=== PATIENT | male | born 1960 | race Caucasian/White ===

== ENCOUNTER → 2017-09-29 | Outpatient (CLI) | payer OTHER | END | disposition home or self-care (01) | LOC: LABPAT 08:49 | PROVIDERS: ATTEND Surgery | DX: Z01.812 Encounter for preprocedural laboratory examination (principal) | CPT/HCPCS: 36415; 84132; 86850; 86900; 86901 ==

== ENCOUNTER → 2017-09-30 | Day surgery (SDC) | payer OTHER ==
[2017-09-29 10:19] VITALS: BMI 34.7
[~2017-09-30] MED LIST: DEXTROSE 50%-WATER 50 ML SYRINGE IVP ONE; LACTATED RINGERS 1,000 ML IV SCH; LIDOCAINE 1% 20 ML VIAL (10MG/ML) FOR IV START INTRADERMA PRN; LIDOCAINE 1% INJ 10MG/ML (20 ML MDV) ONE; PROPOFOL 10 MG/ML 20 ML VIAL IV ONE
[2017-10-01 02:54] LABS: Glucose,Whole Blood 104 mg/dL (75-99)
[2017-10-01 02:55] LABS: Glucose,Whole Blood 101 mg/dL (75-99)
[2017-10-01 02:55] LABS: Glucose,Whole Blood 80 mg/dL (75-99)
--- NOTE | 2017-10-05 13:13 | P.OP ---
Date of Procedure: 09/30/17 Preoperative Diagnosis: Screening colonoscopy Postoperative Diagnosis: Same Procedure(s) Performed: Colonoscopy Anesthesia: MAC Surgeon: Milly Oneal Pathology: none sent Condition: stable Disposition: PACU Indications for Procedure: 57 years old male presents for screening colonoscopy. He underwent attempted colonoscopy at [facility] yesterday and could not be completed secondary to poor prep. He presents today for colonoscopy after taking his second colon prep. Risks, benefits and potential complications were discussed with the patient and he elected to undergo colonoscopy with possible biopsy Operative Findings: Sigmoid diverticulosis Description of Procedure: The patient was brought to the endoscopy suite and placed in lateral decubitus position. IV sedation was given as per anesthesia team. Patient was on continuous vitals and pulse oximetry monitoring throughout the procedure. A timeout was performed to verify correct patient and correct procedure. Perianal examination did not show any external hemorrhoids. Digital rectal examination was performed. No masses or gross blood. A well-lubricated Olympus colonoscope was passed per rectally and was gradually advanced beyond the sigmoid colon, splenic flexure, transverse colon, hepatic flexure and cecum. The ileocecal valve was visualized. No appendiceal orifice visualized consistent wit prior history of appendectomy. The colonoscope was gradually withdrawn inspecting all the mucosal surfaces. Bowel prep was good. No polyps, masses, AV malformations noted. Sigmoid diverticulosis noted without any evidence of acute diverticulitis. The scope was gradually withdrawn and retroflexed in the rectum . Grade 1 internal hemorrhoids seen. Total withdrawal time was greater than 6 minutes . Patient tolerated the procedure well and was taken to post anesthesia care unit in stable condition. Recommend repeat colonoscopy in 10 years .
[2017-10-12 10:36] LABS: Glucose,Whole Blood 61 mg/dL (75-99)
== END ==
LOC: ORWHC2ENDO 11:04
PROVIDERS: ATTEND Surgery
DX: Z12.11 Encounter for screening for malignant neoplasm of colon (principal); K57.30 Diverticulosis of large intestine without perforation or abscess without bleeding; K64.8 Other hemorrhoids; K43.2 Incisional hernia without obstruction or gangrene; E66.9 Obesity, unspecified; Z68.37 Body mass index [BMI] 37.0-37.9, adult; E11.9 Type 2 diabetes mellitus without complications; Z79.84 Long term (current) use of oral hypoglycemic drugs; Z79.4 Long term (current) use of insulin; Z79.899 Other long term (current) drug therapy; Z88.0 Allergy status to penicillin
CPT/HCPCS: J2001; J2704; G0121; 45378

== ENCOUNTER 2017-10-05 11:01 | Day surgery (SDC) | payer OTHER ==
[2017-09-28 12:47] VITALS: BMI 33.7
[~2017-10-05 11:01] MED LIST changes: -DEXTROSE 50%-WATER 50 ML SYRINGE IVP ONE; -LACTATED RINGERS 1,000 ML IV SCH; -LIDOCAINE 1% 20 ML VIAL (10MG/ML) FOR IV START INTRADERMA PRN; -LIDOCAINE 1% INJ 10MG/ML (20 ML MDV) ONE; -PROPOFOL 10 MG/ML 20 ML VIAL IV ONE; +Pre Op ABX Message 1 EACH MISC MISCELLANE ONE
[2017-10-05] MEDS ORDERED: LIDOCAINE 1% 20 ML VIAL (10MG/ML) FOR IV START INTRADERMA ONE ×2 (12:10→12:19)
[2017-10-05 12:16] LABS: Glucose,Whole Blood 72 mg/dL (75-99)
[2017-10-05] MEDS: LACTATED RINGERS 1,000 ML IV SCH ×2 (12:19→18:46)
[2017-10-05] MEDS: ONDANSETRON 4 MG/2 ML VIAL IVP PRN ×2 (12:21→17:24)
[2017-10-05] MEDS ORDERED: HEPARIN SODIUM,PORCINE 5,000 UNIT/ML 1 ML VIAL SQ ONE (12:38)
[2017-10-05] MEDS ORDERED: BUPIVACAINE-EPI 0.5%-1:200,000 10 ML VIAL SQ ONE ×2 (12:55→16:29)
[2017-10-05] MEDS: CLINDAMYCIN 900 MG in DEXTROSE 5% IN WATER 50 ML IVPB ONE ×4 (13:25→13:32)
[2017-10-05] MEDS ORDERED: PHENYLEPHRINE-0.9% NACL SYG 1 MG/10 ML SYRINGE ONE (13:32)
[2017-10-05] MEDS ORDERED: fentaNYL (PF) 50 MCG/ML 2 ML AMP ONE (13:32)
[2017-10-05] MEDS ORDERED: MIDAZOLAM 2 MG/2 ML VIAL ONE (13:32)
[2017-10-05] MEDS ORDERED: LIDOCAINE 1% INJ 10MG/ML (20 ML MDV) ONE (13:32)
[2017-10-05] MEDS ORDERED: NEOSTIGMINE 1 MG/ML 10 ML VIAL ONE (13:32)
[2017-10-05] MEDS ORDERED: SUCCINYLCHOLINE CHLORIDE 100 MG/5 ML SYR IV ONE (13:32)
[2017-10-05] MEDS ORDERED: PROPOFOL 10 MG/ML 20 ML VIAL IV ONE (13:32)
[2017-10-05] MEDS ORDERED: ROCURONIUM BROMIDE 10 MG/ML 10 ML VIAL IV ONE (13:32)
[2017-10-05] MEDS: LEVOFLOXACIN 500MG-D5W PMX 500 MG in DEXTROSE/WATER 1 100ML.BAG IVPB ONE ×2 (13:52→13:58)
[2017-10-05 15:57] LABS: Glucose,Whole Blood 112 mg/dL (75-99)
[2017-10-05] MEDS ORDERED: LACTATED RINGERS 1,000 ML IV ONE ×2 (16:00)
--- NOTE | 2017-10-05 16:37 | P.OP ---
Date of Procedure: 10/05/17 Preoperative Diagnosis: Ventral incisional hernia Obesity BMI 33.7 Type 2 DM Hypertension Postoperative Diagnosis: Same Procedure(s) Performed: Robotic-assisted laparoscopic ventral incisional hernia defect repair with mesh Implants: Ventralight ST mesh 10x15 cm with PS positioning system Anesthesia: STEPHANIEA, local Surgeon: Milly Oneal Estimated Blood Loss (ml): 10 Pathology: other (ASA 3) Condition: stable Disposition: PACU Indications for Procedure: 57 years old male presents with incisional hernia along prior vertical midline incision. Informed consent obtained and patient elected to undergo robotic- assisted laparoscopic incisional hernia repair with mesh possible open. Operative Findings: large hernia defect 10x5 cm Description of Procedure: The patient was brought to the operating room and placed in supine position. General anesthesia with endotracheal intubation was performed as per anesthesia team. The right arm was tucked against the body and a footboard was applied. Chlorhexidine was used to prep the skin followed by application of sterile drapes and Ioban dressing. A timeout was performed to verify correct patient and correct procedure. Patient was confirmed to receive perioperative IV antibiotics , bilateral SCDs and 5000 units of subcutaneous heparin for VTE prophylaxis. A 5 mm skin incision was made along the left midaxillary line and a Veress needle was inserted to establish the pneumoperitoneum to a pressure of 15 mm of Hg. Using a 5 mm 30 laparoscope the peritoneal cavity was entered using the Optiview technique. Additional 12 mm trocar was placed in the mid axillary line in the left mid abdomen and robotic 8 mm trocar in the left lower abdomen. The 5 mm trocar was upsized to 8 mm robotic trocar. The da Lam robot was then docked. The 30 robotic camera was used. A robotic prograsp and monopolar scissors were inserted through 8 mm robotic trocars The hernia defect contained preperitoneal fat and small bowel loops which were reduced using gentle traction and countertraction method.extensive lysis of adhesions was done using scissors to take the small bowel loops off the anterior abdominal wall. The hernia defect was large 10 x 5 cm The falciform ligament was divided using monopolar scissors close to the anterior abdominal wall to create a landing zone for the mesh. A [id number] Ventralight ST mesh with PS positioning system was tagged in the center was rolled and introduced to the abdominal cavity via the 12 mm trocar. The hernia defect was closed primarily with running sutures using O- V lock by taking 1 cm bite on the fascia on either side of the defect. A second layer of running #1 stratafix was used to close the midline defect. A Fidel Helga device was inserted through the middle of the hernia defect and the stay suture on the mesh was grasped to elevate the mesh against the anterior abdominal wall. The mesh was circumferentially sutured to the peritoneum of the anterior abdominal wall using 2-0 V lock without any folds or kinks. The robot was then undocked. Laparoscopic 30 degrees camera was reinserted. All trocar sites were examined. No evidence of bleeding. All needles and PS positioning system were removed. The 12 mm trocar site was closed using two transfascial sutures of 0 Vicryl which were placed using a Fidel Helga device. The pneumoperitoneum was evacuated and all the skin incisions were closed using 4-0 Monocryl followed by Dermabond skin glue. Telfa and Tegaderm dressings were applied. The sponge, instrument and needle count were correct x2. Abdominal binder was applied. The patient was extubated and taken to post anesthesia care unit in stable condition.
[2017-10-05 17:03] VITALS: TEMP 98.1
[2017-10-05 17:04] LABS: Glucose,Whole Blood 109 mg/dL (75-99)
[2017-10-05 17:17] VITALS: RESP 16
[2017-10-05] MEDS: HYDROmorphone 1 MG/ML 1 ML SYRINGE IVP PRN ×2 (17:24→17:38)
[2017-10-05] MEDS ORDERED: FUROSEMIDE 10 MG/ML 2 ML VIAL IV ONE (18:17)
[2017-10-05] MEDS ORDERED: ONDANSETRON 4 MG/2 ML VIAL IVP ONE (18:50)
[2017-10-05 20:01] VITALS: BP 102/67; PULSE 94
== END 2017-10-05 20:32 | disposition home or self-care (01) ==
LOC: OR 11:01
PROVIDERS: ATTEND Surgery
DX: K43.2 Incisional hernia without obstruction or gangrene (principal); Z98.0 Intestinal bypass and anastomosis status; E11.9 Type 2 diabetes mellitus without complications; Z79.84 Long term (current) use of oral hypoglycemic drugs; Z79.899 Other long term (current) drug therapy; Z88.0 Allergy status to penicillin
CPT/HCPCS: 86900; 86901; 86850; 49654; C1781; J2250; J1644; J1940; J2710; J2405; J1956; J2001; J3010; J1170; J2370; J0330; J2704

== ENCOUNTER 2023-06-10 12:04 | Emergency (ER) | payer OTHER ==
[2023-06-10 12:17] VITALS: TEMP 98.1
--- NOTE | 2023-06-10 12:37 | ED ---
Extremity Problem HPI - General Chief complaint: Extremity Problem,Nontraumatic Stated complaint: possible dvt Source: patient Mode of arrival: ambulatory Limitations: no limitations - History of Present Illness Initial comments: 63-year-old female presents to the ED with a chief complaint of leg swelling. States a week ago hit the bed frame with his left lower leg. Since then has developed pain and swelling of the left leg. States pain is dull and 4 out of 10 in nature worse with movement. States he saw his PCP who advised him to present to the ED to rule out a blood clot. Patient is a nonsmoker. Denies exogenous hormone use. Denies any recent travel or periods of immobility. Denies chest pain or shortness of breath. No other complaints. - Related Data Home Medications Medication Instructions Recorded Confirmed metFORMIN HCL [Glucophage] 1,000 mg PO DAILY 09/28/17 06/10/23 Atorvastatin [Lipitor] 20 mg PO DAILY 06/10/23 06/10/23 Canagliflozin [Invokana] 100 mg PO DAILY 06/10/23 06/10/23 Furosemide [Lasix] 40 mg PO DAILY 06/10/23 06/10/23 diphenhydrAMINE HCL [Benadryl] 25 - 50 mg PO Q4H PRN 06/10/23 06/10/23 guaiFENesin-Coden 100-10MG/5ML 10 ml PO Q6H PRN 06/10/23 06/10/23 [Robitussin AC] Previous Rx's Medication Instructions Recorded Sulfamethox-Tmp 800-160Mg [Bactrim 1 each PO Q12HR 5 Days #10 tab 06/10/23 Ds] Allergies Allergy/AdvReac Type Severity Reaction Status Date / Time Penicillins Allergy Swelling Verified 06/10/23 12:17 Review of Systems ROS Statement: Those systems with pertinent positive or pertinent negative responses have been documented in the HPI. ROS Other: All systems not noted in ROS Statement are negative. Past Medical History Past Medical History: Diabetes Mellitus, Osteoarthritis (OA) Additional Past Medical History / Comment(s): "PINCHED NERVE /SCIATIC NERVE PAIN IN PAST, OCC SINUS PROBLEMS, hx. bowel obstruction, left leg & foot swelling. , PT STATES COLONOSCOPY TODAY (09/29/17) AT [facility] BUT BOWEL NOT CLEANED OUT ENOUGH AND NEEDS TO REPEAT BOWEL PREP AND REPEAT COLONOSCOPY TOMORROW AT [facility]. History of Any Multi-Drug Resistant Organisms: None Reported Past Surgical History: Appendectomy, Bowel Resection Additional Past Surgical History / Comment(s): TOOTH EXTRACTIONS, cataract surg., bowel resection 2016. COLONOSCOPY (09/29/17) Past Anesthesia/Blood Transfusion Reactions: Motion Sickness Past Psychological History: No Psychological Hx Reported Smoking Status: Never smoker Past Alcohol Use History: Rare Past Drug Use History: None Reported - Past Family History Mother Family Medical History: Myocardial Infarction ([place]) Father Family Medical History: Osteoarthritis ([place]) General Exam Limitations: no limitations General appearance: alert, in no apparent distress Neck exam: Present: normal inspection Respiratory exam: Present: normal lung sounds bilaterally Cardiovascular Exam: Present: regular rate, normal rhythm Extremities exam: Present: other (EP/PT pulses of left lower extremity 2+. 1+ pitting edema. No pain to palpation of the calf. Negative Homans sign. No erythema. Minimal warmth.) Neurological exam: Present: alert, oriented X3 Skin exam: Present: warm, dry Course Vital Signs 06/10/23 06/10/23 12:14 14:18 Temperature 98.1 F Pulse Rate 100 95 Respiratory 20 18 Rate Blood Pressure 124/87 114/82 O2 Sat by Pulse 97 97 Oximetry Medical Decision Making - Medical Decision Making Was pt. sent in by a medical professional or institution (, PA, FURNITURE CRATER, urgent care, hospital, or retirement...) When possible be specific @ -No Did you speak to anyone other than the patient for history (EMS, parent, family, police, friend...)? What history was obtained from this source @ -No Did you review nursing and triage notes (agree or disagree)? Why? @ -I reviewed and agree with nursing and triage notes Were old charts reviewed (outside hosp., previous admission, EMS record, old EKG, old radiological studies, urgent care reports/EKG's, retirement records)? Report findings @ -No old charts were reviewed Differential Diagnosis (chest pain, altered mental status, abdominal pain women, abdominal pain men, vaginal bleeding, weakness, fever, dyspnea, syncope, headache, dizziness, GI bleed, back pain, seizure, CVA, palpatations, mental health, musculoskeletal)? @ -Differential Musculoskeletal Muscular strain, contusion, ligament sprain, fracture, arthritis, septic arthritis, bursitis, cellulitis, muscle spasm, nerve compression, DVT, arterial occlusion, herpes zoster, electrolyte abnormality, tumor.... This is not meant to be in all inclusive list EKG interpreted by me (3pts min.). @ -None X-rays interpreted by me (1pt min.). @ -None done CT interpreted by me (1pt min.). @ -None done U/S interpreted by me (1pt. min.). @ -Doppler ultrasound interpreted By me shows no evidence of DVT or other acute process. What testing was considered but not performed or refused? (CT, X-rays, U/S, labs)? Why? @ -None What meds were considered but not given or refused? Why? @ -None Did you discuss the management of the patient with other professionals (professionals i.e. , PA, FURNITURE CRATER, lab, RT, psych nurse, oncology social worker, nuclear waste process operator, teacher, cra officer, social work case manager)? Give summary @ -No Was smoking cessation discussed for >3mins.? @ -No Was critical care preformed (if so, how long)? @ -No Were there social determinants of health that impacted care today? How? (Homelessness, low income, unemployed, alcoholism, drug addiction, transportation, low edu. Level, literacy, decrease access to med. care, nursing home, rehab)? @ -No Was there de-escalation of care discussed even if they declined (Discuss DNR or withdrawal of care, Hospice)? DNR status @ -No What co-morbidities impacted this encounter? (DM, HTN, Smoking, COPD, CAD, Cancer, CVA, ARF, Chemo, Hep., AIDS, mental health diagnosis, sleep apnea, morbid obesity)? @ -Type 2 diabetes Was patient admitted / discharged? Hospital course, mention meds given and route, prescriptions, significant lab abnormalities, going to OR and other pertinent info. @ -Discharged. Doppler ultrasound shows no evidence of DVT. With exam finding of minimal warmth and tenderness to palpation on the lateral aspect of the lower leg patient will be started on Keflex due to question of cellulitis. This time, vital signs stable, afebrile Discharged home in stable condition. Discussed return precautions with patient who verbalizes agreement. Undiagnosed new problem with uncertain prognosis? @ -No Drug Therapy requiring intensive monitoring for toxicity (Heparin, Nitro, Insulin, Cardizem)? @ -No Were any procedures done? @ -No Diagnosis/symptom? @ -Left leg pain, cellulitis Acute, or Chronic, or Acute on Chronic? @ -Acute Uncomplicated (without systemic symptoms) or Complicated (systemic symptoms)? @ -Uncomplicated Side effects of treatment? @ -No Exacerbation, Progression, or Severe Exacerbation? @ -No Poses a threat to life or bodily function? How? (Chest pain, [place], [place], pneumonia, PE, COPD, DKA, ARF, appy, cholecystitis, CVA, Diverticulitis, Homicidal, Suicidal, threat to staff... and all critical care pts) @ -No Disposition Clinical Impression: Cellulitis, Left leg pain Disposition: HOME SELF-CARE Condition: Good Instructions (If sedation given, give patient instructions): Cellulitis (ED), Leg Edema (ED) Additional Instructions: Please return to the Emergency Department if symptoms worsen or any other concerns. Prescriptions: Sulfamethox-Tmp 800-160Mg [Bactrim Ds] 1 each PO Q12HR 5 Days #10 tab Is patient prescribed a controlled substance at d/c from ED?: No Referrals: Don Peterson MD [Primary Care Provider] - 1-2 days Time of Disposition: 14:53
--- NOTE | 2023-06-10 13:52 | US ---
EXAMINATION TYPE: US venous doppler duplex LE LT DATE OF EXAM: 06/10/2023 1:40 PM COMPARISON: NONE CLINICAL INDICATION: Male, 63 years old with history of r/o dvt; pain edema left leg lump on calf. SIDE PERFORMED: Left TECHNIQUE: The lower extremity deep venous system is examined utilizing real time linear array sonog agustin with graded compression, doppler sonography and color-flow sonography. VESSELS IMAGED: Common Femoral Vein Deep Femoral Vein Greater Saphenous Vein * Femoral Vein Popliteal Vein Small Saphenous Vein * Proximal Calf Veins (* superficial vessels) Left Leg: Negative for DVT Complex 5.4 cm fluid area left calf lateral area of lump and pain IMPRESSION: 1. No diagnostic evidence of DVT. 2. There is a complex area is seen along the lateral margin of the left calf. Could be on the basis h ematoma. Phlegmon or abscess entirely excluded correlate clinically.
[2023-06-10 14:21] VITALS: BP 114/82; PULSE 95; RESP 18
== END 2023-06-10 15:06 | disposition home or self-care (01) ==
LOC: EC 12:04
DX: L03.116 Cellulitis of left lower limb (principal); E11.36 Type 2 diabetes mellitus with diabetic cataract; M19.90 Unspecified osteoarthritis, unspecified site; Z88.0 Allergy status to penicillin; Z79.84 Long term (current) use of oral hypoglycemic drugs; Z79.899 Other long term (current) drug therapy; W22.09XA Striking against other stationary object, initial encounter
CPT/HCPCS: 99284

== ENCOUNTER → 2023-10-04 | Outpatient (CLI) | payer OTHER ==
--- NOTE | 2023-10-04 08:36 | US ---
EXAMINATION TYPE: US abdomen complete DATE OF EXAM: 10/04/2023 COMPARISON: 04/02/2016 CLINICAL INDICATION: Male, 63 years old with history of R19.00 INTRA-ABD AND PELVIC SWELLING, MASS N5 0.89; Left pelvic/groin pain TECHNIQUE: Multiple sonographic images of the abdomen are obtained. FINDINGS: EXAM MEASUREMENTS: Liver Length: 14.5 cm Gallbladder Wall: 0.2 cm CBD: 0.4 cm Spleen: 12.8 cm Right Kidney: 10.6 x 5.6 x 4.3 cm Left Kidney: 11.7 x 5.5 x 5.5 cm Pancreas: obscured by overlying midline bowel gas Liver: scanned intercostally, visualized portions appear wnl . Gallbladder: borderline hydropic measuring 4 cm wide, 1.2cm echogenic focus seen, wall measures wnl Evidence for sonographic Ames's sign: no CBD: visualized portions wnl, limited by overlying bowel gas Spleen: wnl Right Kidney: wnl Left Kidney: wnl Upper IVC: wnl Abd Aorta: proximal portion obscured by overlying midline bowel gas, visualized mid and distal porti ons appear wnl IMPRESSION: 1. A 1.2 cm gallstone. Gallbladder is borderline hydropic probably due to fasting state. No wall thic kening or sonographic Ames sign at this time. If concern for early acute cholecystitis, HIDA scan c an be considered. 2. No biliary duct dilatation.
--- NOTE | 2023-10-04 08:43 | US ---
EXAMINATION TYPE: US scrotum with doppler. TECHNIQUE: Grayscale and color Doppler Duplex imaging performed of the scrotum. DATE OF EXAM: 10/04/2023 COMPARISON: NONE CLINICAL INDICATION: Male, 63 years old with history of R19.00 INTRA-ABD AND PELVIC SWELLING, MASS N5 0.89; Left pelvic/groin pain EXAM MEASUREMENTS: TESTICLES: Right Testicle: 4.4 x 2.2 x 2.9 cm Left Testicle: 4.2 x 2.5 x 3.1 cm EPIDIDYMIS HEAD: Right Epididymis: 1.3 cm Left Epididymis: 1.6 cm Doppler performed to assess for testicular vascularity; good bilateral color flow and waveforms are s een. There is no evidence of testicular torsion. Presence of hydroceles: right - small measuring 4.9cm with minimal debris, left -small measuring 2.4 cm with minimal debris Presence of varicoceles: no Battery Container Finishing Hand notes: Scanned left pelvis/groin at patients area of concern: bowel appears very superficial but unable to i dentify a break in the wall and no change with valsalva, 2.7cm fluid collection seen Scanned right pelvis/groin for comparison: bowel appears much deeper in no movement comparison to lef t side IMPRESSION: 1. No sonographic evidence for testicular torsion or epididymoorchitis. 2. Small bilateral hydroceles, right greater than left containing some minimal floating debris. 3. Targeted scanning along the left groin at the area of patient's pain shows possible encysted hydro yessi and superficial location of some bowel, asymmetric to the contralateral side. No movement on [place] ny. A fixed direct inguinal hernia or underlying encysted hydrocele are in the differential. If in dicated, consider CT without and with Valsalva to further evaluate.
== END | disposition home or self-care (01) ==
LOC: RADUSWWP 07:03
PROVIDERS: ATTEND Pediatrics
DX: K80.20 Calculus of gallbladder without cholecystitis without obstruction (principal); N50.89 Other specified disorders of the male genital organs; N43.3 Hydrocele, unspecified; R19.09 Other intra-abdominal and pelvic swelling, mass and lump
CPT/HCPCS: 76700; 76870; 93975

== ENCOUNTER → 2023-10-24 | Outpatient (CLI) | payer OTHER ==
--- NOTE | 2023-10-25 09:39 | CA ---
Transthoracic Echo Report Name: Sha Foster Age: 63 Gender: M : 1960 Exam Date: 10/24/2023 11:40 Exam Location: [facility] Ht (in): 70 Wt (lb): 245 Ordering Physician: Don Peterson MD Attending/Referring Phys: Allegra Pro PAC Desk Reporter Betsy Johnson RDCS Procedure CPT: Indications: R60.0 LOCALIZED EDEMA Cardiac Hx: Technical Quality: Fair Contrast 1: Total Dose (mL): Contrast 2: Total Dose (mL): MEASUREMENTS (Male / Female) Normal Values 2D ECHO LV Diastolic Diameter PLAX 4.0 cm 4.2 - 5.9 / 3.9 - 5.3 cm LV Systolic Diameter PLAX 2.4 cm IVS Diastolic Thickness 1.5 cm 0.6 - 1.0 / 0.6 - 0.9 cm LVPW Diastolic Thickness 1.4 cm 0.6 - 1.0 / 0.6 - 0.9 cm LV Relative Wall Thickness 0.7 RV Internal Dim ED PLAX 3.3 cm LA Volume 61.6 cm??? 18 - 58 / 22 - 52 cm??? LA Volume Index 25.8 cm???/m??? 16 - 28 cm???/m??? M-MODE Aortic Root Diameter MM 3.8 cm LA Systolic Diameter MM 4.7 cm LA Ao Ratio MM 1.2 AV Cusp Separation MM 2.2 cm DOPPLER AV Peak Velocity 136.8 cm/s AV Peak Gradient 7.5 mmHg AV Mean Velocity 98.5 cm/s AV Mean Gradient 4.5 mmHg AV Velocity Time Integral 27.7 cm LVOT Peak Velocity 99.1 cm/s LVOT Peak Gradient 3.9 mmHg LVOT Velocity Time Integral 18.9 cm MV Area PHT 2.6 cm??? Mitral E Point Velocity 56.9 cm/s Mitral A Point Velocity 82.9 cm/s Mitral E to A Ratio 0.7 MV Deceleration Time 290.3 ms MV E' Velocity 6.3 cm/s Mitral E to MV E' Ratio 9.1 TR Peak Velocity 179.1 cm/s TR Peak Gradient 12.8 mmHg Right Ventricular Systolic Press 17.8 mmHg FINDINGS Left Ventricle Moderately increased left ventricular wall thickness. Left ventricular cavity size normal. Normal left ventricular systolic function with no obvious regional wall motion abnormalities. Left ventricular ejection fraction is estimated at 55-60 %. Right Ventricle Normal right ventricular size. Right ventricular systolic pressure within normal limits. Right Atrium Normal right atrial size. Left Atrium Mildly increased left atrial volume. Mildly increased left atrial area. Mitral Valve Structurally normal mitral valve. No mitral stenosis, regurgitation or prolapse. Aortic Valve No aortic valve stenosis or regurgitation. Tricuspid Valve Structurally normal tricuspid valve. Mild tricuspid regurgitation. Pulmonic Valve Structurally normal pulmonic valve. Pericardium No pericardial effusion. Aorta Normal size aortic root and proximal ascending aorta. CONCLUSIONS Preserved LV size and systolic function. LVH Previewed by: Dr. Jamil Sanchez MD (Electronically Signed) Final Date: 25 October 2023 09:38
== END | disposition home or self-care (01) ==
LOC: RADECHMAIN 11:01
PROVIDERS: ATTEND Pediatrics
DX: I51.7 Cardiomegaly (principal); R60.0 Localized edema
CPT/HCPCS: 93306

== ENCOUNTER → 2023-11-09 | Outpatient (CLI) | payer OTHER ==
[2023-11-09 12:09] LABS: African American GFR (CKD) >90 (>60 ml/min/1.73 sqM); Blood Urea Nitrogen 21 mg/dL (9-20); Non-African American GFR(CKD) 89 (>60 ml/min/1.73 sqM)
--- NOTE | 2023-11-09 14:43 | CT ---
EXAMINATION TYPE: CT pelvis w con DATE OF EXAM: 11/09/2023 COMPARISON: 04/02/2016 HISTORY: pelvic and scrotal pain CT DLP: 1131.4 mGycm Automated exposure control for dose reduction was used. Contrast: None Technique: Axial images 5 mm thick sections. Reconstructed images in the coronal plane. FINDINGS: There is a left inguinal hernia containing nondilated loops of colon. This extends to nearly the scro brannon. Fat-containing right inguinal hernia is present. Calcification is present within the hernia. Urinary bladder is unremarkable. The bowel within the abdomen appear unremarkable. No obstruction is evident. Oral contrast extends through most visualized loops of bowel. There are some loops of bowel lacking oral contrast limiting their evaluation. IMPRESSION: 1. LEFT INGUINAL HERNIA CONTAINING NONDILATED LOOPS OF COLON EXTENDING TO NEARLY THE SCROTUM. 2. FAT-CONTAINING RIGHT INGUINAL HERNIA.
== END | disposition home or self-care (01) ==
LOC: RADCTMAIN 11:01
PROVIDERS: ATTEND Pediatrics
DX: K80.20 Calculus of gallbladder without cholecystitis without obstruction (principal); R19.00 Intra-abdominal and pelvic swelling, mass and lump, unspecified site; E11.9 Type 2 diabetes mellitus without complications
CPT/HCPCS: 82565; 84520; 72193; 36415; Q9967

== ENCOUNTER 2024-04-27 08:51 | Day surgery (SDC) | payer OTHER ==
--- NOTE | 2024-04-27 07:44 | P.GSHP ---
History of Present Illness H&P Date: 04/27/24 Chief Complaint: Incarcerated left inguinal hernia 64-year-old here today for elective hernia repair. Last seen in February. Patient with large mass left groin. Increasing soreness. Patient with extensive abdominal surgical history as well. Past Medical History Past Medical History: Diabetes Mellitus, Osteoarthritis (OA) Additional Past Medical History / Comment(s): "PINCHED NERVE /SCIATIC NERVE PAIN IN PAST, OCC SINUS PROBLEMS, hx. bowel obstruction, left leg & foot swelling. , COLONOSCOPY History of Any Multi-Drug Resistant Organisms: None Reported Past Surgical History: Appendectomy, Bowel Resection, Hernia Repair Additional Past Surgical History / Comment(s): TOOTH EXTRACTIONS, cataract surg., bowel resection 2016 , incisional hernia,cataract surgery and lser surgery for retinal bleeding. COLONOSCOPY (09/29/17) Past Anesthesia/Blood Transfusion Reactions: Motion Sickness Smoking Status: Never smoker - Past Family History Mother Family Medical History: Myocardial Infarction ([place]) Father Family Medical History: Osteoarthritis ([place]) Medications and Allergies Home Medications Medication Instructions Recorded Confirmed Type metFORMIN HCL [Glucophage] 1,000 mg PO DAILY 09/28/17 04/24/24 History Atorvastatin [Lipitor] 20 mg PO DAILY 06/10/23 04/24/24 History Canagliflozin [Invokana] 100 mg PO DAILY 06/10/23 04/24/24 History Furosemide [Lasix] 60 mg PO DAILY 06/10/23 04/24/24 History sitaGLIPtin [Januvia] 100 mg PO DAILY 04/24/24 04/24/24 History Allergies Allergy/AdvReac Type Severity Reaction Status Date / Time Penicillins Allergy Swelling Verified 04/24/24 15:19 Surgical - Exam Physical exam: General: Well-developed, well-nourished HEENT: Normocephalic, sclerae nonicteric Abdomen: Nontender, nondistended, Prior scars noted, incarcerated left inguinal hernia Extremities: No edema Neuro: Alert and oriented Assessment and Plan (1) Incarcerated inguinal hernia Narrative/Plan: 64-year-old male with incarcerated left inguinal hernia. Patient with prior abdominal surgeries possibly resulting in significant abdominal adhesions. Discussed with patient that conversion to traditional open repair much higher in this case given his hernia findings and surgical history. We'll proceed with laparoscopic dimension assisted repair left inguinal hernia with mesh, possible open, possible bilateral. Risks of bleeding, infection, recurrence, bladder and bowel injury, numbness, nerve injury, conversion to an open procedure were discussed with the patient. The patient understands and wishes to proceed. Status: Acute Code(s): K40.30 - UNIL INGUINAL HERNIA, W OBST, W/O GANGR, NOT SPCF RECUR SNOMED Code(s): 004240435
[~2024-04-27 08:51] MED LIST changes: +HYDROmorphone 0.5 MG/0.5 ML SYRINGE IVP PRN; +LIDOCAINE 1% (10MG/ML) FOR IV START INTRADERMA PRN; +MIDAZOLAM 2 MG/2 ML VIAL IV PRN; -Pre Op ABX Message 1 EACH MISC MISCELLANE ONE; +fentaNYL (PF) 50 MCG/ML 2 ML AMP IVP PRN
[2024-04-27] MEDS: IV FLUID CONTINUATION 1,000 ML IV ONE (09:25)
[2024-04-27] MEDS: ACETAMINOPHEN TAB 500 MG TAB PO PRN (09:40)
[2024-04-27 10:04] LABS: Glucose,Whole Blood 120 mg/dL (70-110)
[2024-04-27] MEDS: DEXAMETHASONE SOD PHOSPHATE 4 MG/ML 1 ML VIAL IV ONE (10:06)
[2024-04-27] MEDS: ONDANSETRON 4 MG/2 ML VIAL IVP ONE (10:06)
[2024-04-27] MEDS: LACTATED RINGERS 1,000 ML IV SCH (10:06)
[2024-04-27] MEDS: HEPARIN SODIUM,PORCINE 5,000 UNIT/ML 1 ML VIAL SQ PRN (10:13)
[2024-04-27] MEDS: TAMSULOSIN 0.4 MG CAP.ER.24H PO STA (10:13)
[2024-04-27 10:19] LABS: Basophils # (A) 0.1 k/uL (0-0.2); Basophils % (A) 1 %; Eosinophils # (A) 0.2 k/uL (0-0.7); Eosinophils % (A) 2 %; HCT 46.9 % (39.0-53.0); HGB 15.2 gm/dL (13.0-17.5); Lymphocytes # (A) 1.9 k/uL (1.0-4.8); Lymphocytes % (A) 27 %; MCH 28.1 pg (25.0-35.0); MCHC 32.5 g/dL (31.0-37.0); MCV 86.4 fL (80.0-100.0); Mean Platelet Volume 7.1; Monocytes # (A) 0.4 k/uL (0-1.0); Monocytes % (A) 5 %; Neutrophils # (A) 4.3 k/uL (1.3-7.7); Neutrophils % (A) 62 %; Platelet Count 183 k/uL (150-450); RBC 5.43 m/uL (4.30-5.90); RDW 13.5 % (11.5-15.5)
[2024-04-27] MEDS ORDERED: GLYCOPYRROLATE 0.2 MG/ML 2 ML VIAL ONE (10:39)
[2024-04-27] MEDS ORDERED: ROCURONIUM 10 MG/ML (5 ML VIAL) IV ONE (10:39)
[2024-04-27] MEDS ORDERED: HYDROmorphone (PF) 1 MG/ML ONE (10:39)
[2024-04-27] MEDS ORDERED: PROPOFOL 10 MG/ML 20 ML VIAL IV ONE (10:39)
[2024-04-27] MEDS ORDERED: fentaNYL (PF) 50 MCG/ML 2 ML AMP ONE (10:39)
[2024-04-27] MEDS ORDERED: SUCCINYLCHOLINE CHLORIDE 200 MG/10 ML VIAL IV ONE (10:39)
[2024-04-27] MEDS ORDERED: NEOSTIGMINE 1 MG/ML 10 ML VIAL ONE (10:39)
[2024-04-27] MEDS ORDERED: SUGAMMADEX SODIUM 200 MG/2 ML SDV IV ONE (10:39)
[2024-04-27] MEDS ORDERED: LIDOCAINE 1% INJ 10MG/ML (20 ML MDV) ONE (10:39)
[2024-04-27] MEDS ORDERED: PHENYLEPHRINE-0.9% NACL SYG 1,000 MCG/10 ML SYRINGE ONE (10:39)
[2024-04-27] MEDS: BUPIVACAINE (PF) 0.25% 30 ML VIAL SQ ONE ×2 (11:09)
[2024-04-27] MEDS: LACTATED RINGERS 1,000 ML IV ONE (11:58)
--- NOTE | 2024-04-27 12:57 | P.OP ---
Date of Procedure: 04/27/24 Procedure(s) Performed: PREOPERATIVE DIAGNOSIS: Incarcerated left inguinal hernia POSTOPERATIVE DIAGNOSIS: Same, Abdominal adhesions PROCEDURE: Laparoscopic da Lam assisted lysis of adhesions and left inguinal hernia repair with mesh, Excision cord lipoma SURGEON: Dr. Carl ANESTHESIA: General OPERATIVE PROCEDURE DETAILS: Patient was placed in the operating table in the supine position. The patient was placed under general anesthesia. The abdomen was prepped and draped in usual sterile fashion. A 5 mm optical trocar was used to enter the abdominal cavity in the left Upper quadrant. Insufflation took place fully to 15 mm of mercury. The patient had adhesions to the midline from the previous Intraperitoneal mesh placement. I was able to place a 8 mm trocar superior midline under direct visualization just above the mesh. An additional 8 mm trocar was placed in the right upper quadrant. The first trocar was then switched to an 8 mm trocar as well. Lysis of adhesions took place using a combination of blunt dissection and sharp dissection. No cautery was used. No enterotomy or serosal tears were seen. The patient had a large left inguinal hernia that was able to be mostly reduced prior to prepping the abdomen. This was a large Indirect inguinal hernia. The peritoneum was incised in a horizontal fashion cephalad to the internal inguinal ring. Following that careful dissection of the preperitoneal space took place. This took place using both electrocautery, sharp dissection but primarily blunt dissection. Visualization of the pubic tubercle and Robin's ligament took place medially. Full dissection took place laterally as well. The hernia sac was fully dissected. The patient had a very large cord lipoma as well that was excised. This was sent to pathology. The vessel sealer was used for much of this portion of the procedure. Once we had adequate space the 16 x 12 cm Progrip mesh was advanced into the preperitoneal space and flattened out appropriately to cover all potential hernia sites. This was sutured to Robin's ligament using a short running 30 absorbable the lock suture that was then carried anteriorly in the midline. The peritoneal defect was then closed using a absorbable 2-0 VLok suture. The hernia sac was incorporated into the peritoneal closure to help prevent future recurrence. The pneumoperitoneum was then evacuated. The skin of all 3 sites was closed using a 4-0 Monocryl stitch. Skin glue was then applied. TYPE OF MESH USED: 16 x 12 cm progrip LOCATION OF MESH: Preperitoneal FIXATION: Absorbable 30V LOC PREOPERATIVE DISCUSSION ON SMOKING CESSASTION: Yes PREOPERATIVE DISCUSSION ON MORBID OBESITY: Yes PREOPERATIVE DISCUSSION ON APPROPRIATE USE OF NARCOTIC USE: Yes PREOPERATIVE EDUCATION: Multi Modal, Smoking Cessation and Weight Loss with BMI over 35. DISPOSITION: Stable to recovery room
[2024-04-27 13:06] VITALS: TEMP 98
[2024-04-27 14:20] VITALS: RESP 16
[2024-04-27 14:31] VITALS: BP 101/67; PULSE 67
[2024-04-27] MEDS ORDERED: ACETAMINOPHEN TAB 325 MG TAB PO SCH (16:00)
[2024-04-27] MEDS ORDERED: IBUPROFEN 600 MG TAB PO SCH (19:00)
== END 2024-04-27 15:03 | disposition home or self-care (01) ==
LOC: OR 08:51
PROVIDERS: ATTEND Surgery
DX: K40.30 Unilateral inguinal hernia, with obstruction, without gangrene, not specified as recurrent (principal); D17.6 Benign lipomatous neoplasm of spermatic cord; K66.0 Peritoneal adhesions (postprocedural) (postinfection); E11.9 Type 2 diabetes mellitus without complications; Z88.0 Allergy status to penicillin; Z79.84 Long term (current) use of oral hypoglycemic drugs; Z79.899 Other long term (current) drug therapy
CPT/HCPCS: 49650; S2900; 85025; 86850; 86900; 86901; 88304